=== PATIENT | female | born 1945 | race Caucasian/White ===

== ENCOUNTER 2016-07-06 09:44 | Outpatient (CLI) | payer OTHER ==
--- NOTE | 2016-07-06 10:51 | DIAGNOSTIC IMAGING REPORT ---
PROCEDURE: DEXA BONE DENSITY STUDY CLINICAL INDICATION: SCREENING COMPARISON: DEXA 06/05/2009 FINDINGS: LUMBAR SPINE: Bone mineral density 0.857 g/cm2, T score -1.7 osteopenia which represents a 3.8% improvement from the previous study LEFT HIP: Bone mineral density 0.656 g/cm2, T score -2.3 osteopenia which represents a 5.5% decrease from the previous study LEFT FEMORAL NECK: Bone mineral density 0.487 g/cm2, T score -3.3 osteoporosis which represents a 2.7% decrease from the previous study FRACTURE RISK CALCULATION ( when applicable): 10-year fracture risk of a major osteoporotic fracture and of a hip fracture not reported because all T-scores at or below -2.5 (T score greater or equal to -1.0 to: NORMAL) (T score from -1.1 to -2.4: OSTEOPENIA) (T score ess than or equal to -2.5: OSTEOPOROSIS) IMPRESSION: 1. Osteoporosis femoral neck osteopenia lumbar spine hip
--- NOTE | 2016-07-06 11:09 | DIAGNOSTIC IMAGING REPORT ---
PROCEDURE: XR KNEE 4 VIEWS - RIGHT INDICATION: RT KNEE PAIN TECHNIQUE: Four views. COMPARISON: None. FINDINGS: There is osteoarthritis with narrowing of the medial joint space compartment. IMPRESSION: 1. Osteoarthritis right knee
== END 2016-07-06 23:00 ==
LOC: XR SRH 09:44
DX: M81.8 Other osteoporosis without current pathological fracture (principal); M85.88 Other specified disorders of bone density and structure, other site; M17.11 Unilateral primary osteoarthritis, right knee